=== PATIENT | female | born 1950 | race Caucasian/White ===

== ENCOUNTER → 2021-02-10 | Day surgery (SDC) | payer MEDICARE, OTHER ==
[~2021-02-10] MED LIST: Acetaminophen 500 MG TAB ONE; diphenhydrAMINE 50 MG/ML VIAL ONE
== END ==
LOC: CSHSDC/OP 01:00
PROVIDERS: ATTEND Family Medicine
DX: U07.1 COVID-19 (principal); Z23 Encounter for immunization
CPT/HCPCS: 96365; 96374; Q0244; J1200; J3490; M0243